=== PATIENT | male | born 1960 | race Caucasian/White ===

== ENCOUNTER 2019-09-23 10:35 | Emergency (ER) | payer OTHER ==
[~2019-09-23] VITALS: Ht 190.5 cm; Wt 117.9 kg
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
[2019-09-23 10:51] VITALS: BP 0/0
== END 2019-09-23 10:51 ==
LOC: ER 10:35
DX: I46.9 Cardiac arrest, cause unspecified (principal)